=== PATIENT | male | born 2000 | race African-American/Black ===

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

== ENCOUNTER 2019-05-21 19:00 | Emergency (ER) | payer MEDICAID, OTHER ==
[2019-05-21] MEDS ORDERED: Bicillin LA 1.2 MILLION UNITS/2 ML SYRINGE ONE ×2 (20:01→20:03)
[2019-05-21] MEDS ORDERED: Dexamethasone 10 MG/ML VIAL ONE (20:03)
== END 2019-05-21 20:33 | disposition home or self-care (01) ==
LOC: ERS 19:00
DX: J02.9 Acute pharyngitis, unspecified (principal)
CPT/HCPCS: 87081; 87430; 96372; 99283; J0561; J1100

== ENCOUNTER 2019-12-16 08:49 | Emergency (ER) | payer OTHER ==
[2019-12-16] MEDS ORDERED: Dexamethasone 10 MG/ML VIAL ONE (09:36)
[2019-12-16] MEDS ORDERED: Dexamethasone 4 MG TAB ONE (09:36)
== END 2019-12-16 10:38 | disposition home or self-care (01) ==
LOC: ERS 08:49
DX: J02.9 Acute pharyngitis, unspecified (principal)
CPT/HCPCS: 87081; 87430; J1100; J8540